=== PATIENT | male | born 1985 | race Hispanic/Latino ===

== ENCOUNTER 2023-02-15 17:05 | Emergency (ER) | payer OTHER ==
[~2023-02-15] VITALS: Ht 157.5 cm; Wt 74.8 kg
[2023-02-15 17:08] VITALS: BP 157/104; PULSE 88; RESP 20
[2023-02-15] MEDS ORDERED: DEXAMETHASONE SOD PHOSPHATE 4 MG/ML 1ML VIAL IM ONE (18:30)
[2023-02-15] MEDS ORDERED: CLIN-141 PO (18:41)
[2023-02-15] MEDS ORDERED: IBUP-2070 PO (18:41)
[2023-02-15] MEDS ORDERED: MOXIOS OD (18:41)
[2023-02-15] MEDS ORDERED: HYDR-3421 PO (18:41)
== END 2023-02-15 18:59 | disposition home or self-care (01) ==
LOC: EDH 17:05
DX: H10.31 Unspecified acute conjunctivitis, right eye (principal)
CPT/HCPCS: 99283; 96372; J1100